=== PATIENT | female | born 1980 | race African-American/Black ===

== ENCOUNTER 2023-10-04 02:52 | Day surgery (SDC) | payer OTHER, SELFPAY ==
[2023-10-03 08:32] VITALS: BMI 27.3
--- NOTE | 2023-10-03 08:38 | PC.NURSE ---
Report to the Outpatient Waiting Room, entrance under the green pavilion located off [facility], at time 7:30 on date 10/04/23. Planned Procedure Time: 9:30. Time changes happen often and if your time is changed the preop area will call you the afternoon before. - You and your visitor will be asked to self-screen and do not enter if you have any COVID symptoms. - A mask is optional within the hospital at this time. Patients may have clear liquids (water, carbonated beverages, clear teas, apple juice) until 3 hours prior to surgery with a maximum of 20 ounces. - No food from midnight until time of surgery Take the following medications with a SIP of water the morning of surgery: NONE DO NOT STOP ANY OF YOUR OTHER PRESCRIPTION MEDICATIONS PRIOR TO SURGERY ?EXCEPT THE FOLLOWING Medications to discontinue per physician: VITAMINS Date to take last dose: NO MORE UNTIL AFTER SURGERY Please no make-up, nail slovenian, hairspray, perfume, deodorant, or body powder the day of surgery. No jewelry (including any body piercings) or valuables the day of surgery, leave them at home. Please take a shower or bath the night before, or the morning of, surgery with an antibacterial soap. Wear comfortable, loose fitting clothing. - Jewelry must be removed prior to entering the operating room. Rings and piercings that are not removed may be cut off. - The hospital will not accept responsibility for valuables. - Please leave all valuables, including medications, at home the day of surgery. If you are going home after surgery, a licensed petroleum transport driver must drive you home. - NO public transportation without another adult if you receive anesthesia. - We recommend that an adult stay with you for 24 hours following discharge. - We also recommend that you do not drive, make important decision, drink alcoholic beverages, or take any drugs that were not prescribed by your health care provider for at least 24 hours after your discharge time. Follow any additional instructions given to you from your surgeon. If you or anyone in your household have experienced Covid symptoms in the past week, please notify your surgeon or the nurse liaison at the phone number below for possible testing. Telephone instructions given to PT - BALDOMERO CHAVARRIA and asked if any additional questions and then verbalized understanding. Patient advised to call surgeon office or pre surgery nurse liaison [phone] if any additional questions.
[2023-10-04] VITALS (9 sets, daily range): BP systolic 135–156; BP diastolic 77–109; PULSE 73–97; RESP 14–30; TEMP 36.7–36.8; O2SAT 100
--- NOTE | ~2023-10-04 | XR_ITS ---
Supine and upright views of the abdomen Clinical history: Lithotripsy Findings: Bowel gas pattern is nonspecific. No evidence for obstruction or free air. There is an 11 m m presumed stone, probably in the region of the left renal pelvis or proximal left ureter. Osseous st ructures are intact. Impression: Presumed 11 mm stone, likely in the region of the left renal pelvis or proximal left ureter. Reviewed, dictated and finalized at location . [facility] Impression: Presumed 11 mm stone, likely in the region of the left renal pelvis or proximal left ureter.
--- NOTE | 2023-10-04 06:25 | WPDHPUPDATE1 ---
History and Physical Update Update Date/Time: 10/04/23 06:25 History and Physical has been reviewed, including an updated exam of the patient. There are NO changes in the patient's condition. Risks, benefits, and alternatives have been discussed and questions answered. Patient agrees to proceed with procedure.
--- NOTE | 2023-10-04 06:26 | WPDHPUPDATE1 ---
History and Physical Update Update Date/Time: 10/04/23 06:26 History and Physical has been reviewed, including an updated exam of the patient. There are NO changes in the patient's condition. Risks, benefits, and alternatives have been discussed and questions answered. Patient agrees to proceed with procedure.
--- NOTE | 2023-10-04 07:57 | ECG_ITS ---
Measurements Intervals Bradley Rate: 72 P: 62 VT: 168 QRS: 51 QRSD: 82 T: 44 QT: 389 QTc: 429 Interpretive Statements SINUS RHYTHM NORMAL ECG NO PREVIOUS ECG AVAILABLE FOR COMPARISON Electronically Signed On 10-04-2023 14:09:21 STUDENT ACCOUNTS COORDINATOR by Nigel Pierre M.D.
[2023-10-04 08:33] LABS: Appearance Urine Clear (Clear); Bilirubin Urine Negative (Negative); Blood Urine Negative (Negative); Color Urine Yellow (Yellow); Glucose Urine UA Negative (Negative); Ketones Urine Negative (Negative); Leukocyte Esterase Ur Negative LEU/UL (Negative); Nitrate Urine Negative (Negative); Protein Urine Negative (Negative); Specific Grav Ur 1.013 (1.001-1.035); Urobilinogen Urine 0.2 mg/dL (<2.0); pH Urine 6.5 (5.0-9.0)
[2023-10-04 08:41] LABS: Add Urine Microscopic? NO
[2023-10-04] MEDS: LACTATED RINGERS 1,000 ML 30 ML IV CONT (08:45)
--- NOTE | 2023-10-04 09:03 | WPDANESEPPF ---
Anes - Initial Pre Proc Eval Procedure: Operation Date: 10/04/23 09:30 Proposed Procedures p Left Ureteral Extracorporeal Shock Wave Lithotripsy - Selwyn Escobar MD Date/Time: 10/04/23 09:03 Surgeon: Selwyn Escobar MD Pre Op Diagnosis: Lt Ureteral Kidney Stone Patient Data Age: 43 Gender: F Height: 1.73 m Weight: 58.2 kg Allergies Allergy/AdvReac Type Severity Reaction Status Date / Time amlodipine Allergy Rash Verified 10/04/23 08:46 naproxen Allergy Swelling Verified 10/03/23 08:31 Home Medications Medication Instructions Recorded Confirmed Type ferrous sulfate 325 mg (65 mg 325 mg PO DAILY 10/03/23 10/04/23 History iron) tablet (Iron (ferrous sulfate)) losartan 100 1 tablet PO DAILY 10/03/23 10/04/23 History mg-hydrochlorothiazide 12.5 mg tablet semaglutide 1 mg/dose (4 mg/3 mL) 1 mg subcut WEEKLY 10/03/23 10/04/23 History subcutaneous pen injector (Ozempic) Laboratory Tests 10/04/23 10/04/23 08:23 08:43 Hgb Pending Hct Pending PT Pending INR Pending APTT Pending Sodium Pending Potassium Pending Chloride Pending Carbon Dioxide Pending Anion Gap Pending BUN Pending Creatinine Pending Estim Creat Clear Calc Pending Estimated GFR Pending Glucose Pending Calcium Pending Urine Color Yellow (Yellow) Urine Appearance Clear (Clear) Urine pH 6.5 (5.0-9.0) Ur Specific [place] 1.013 (1.001-1.035) Urine Protein Negative mg/dL (Negative) Urine Glucose (UA) Negative mg/dL (Negative) Urine Ketones Negative mg/dL (Negative) Ur Blood (Man) Negative (Negative) Urine Nitrate Negative (Negative) Urine Bilirubin Negative (Negative) Urine Urobilinogen 0.2 mg/dL (<2.0) Leukocyte Esterase Rfl Negative MARQUISE/UL (Negative) Patient hx anesthesia problems: post op nausea/vomiting Family hx anesthesia problems: none Results Review: All pre-operative results and documents have been reviewed as part of the pre-operative evaluation. [facility] Social History Social History Smoking status: Never smoker Alcohol intake: current Alcohol use details: RARE Substance use: current Substance use type: marijuana Living arrangements: with family Spiritual care concerns: No Anes - Eval Final PreProcedure Day of Procedure 10/04/23 09:03 Patient weight: normal Heart: regular rate and rhythm Lungs: clear to auscultation Airway: Mallampati scale class II Neurological: alert and oriented Last oral intake: >/= 8 hours ASA classification: II Emergent: no Anesthetic plan: proceed Anesthesia type and monitoring: general LMA and standard monitoring Results Review: All pre-operative results and documents have been reviewed as part of the pre-operative evaluation. Informed Consent: The patient's anesthetic plan and its attendant risks and benefits were discussed with the patient/family/POA. Questions were solicited and answers provided to the satisfaction of the patient/family/POA.
[2023-10-04 09:05] LABS: Anion Gap 5 mmol/L (8-16); Blood Urea Nitrogen 11 mg/dL (7-17); Calcium 9.3 mg/dL (8.4-10.2); Carbon Dioxide 29 mmol/L (22-30); Chloride 104 mmol/L (98-107); Estimated CRCL calculation 73 ml/min; Estimated Glomerular Filt Rate > 60; Glucose 89 mg/dL (65-110); Potassium 3.5 mmol/L (3.4-5.0); Sodium 138 mmol/L (137-145)
[2023-10-04 09:08] LABS: Prothrombin Time 13.1 Seconds (11.1-14.7)
[2023-10-04 09:09] LABS: Partial Thromboplastin Time 30.6 SECONDS (22.3-36.8)
[2023-10-04 09:13] LABS: Hematocrit 37.2 % (37.0-47.0); Hemoglobin 12.2 g/dL (12.0-15.0)
[2023-10-04] MEDS: ceFAZolin 2 GM/D5W 50 ML 2 GM/50 ML BAG IVPB (09:30)
--- NOTE | 2023-10-04 09:59 | W.PM.PROC2 ---
Procedure Note - Detailed Date of Procedure 10/04/23 Pre-op Diagnosis Left kidney stone Post-op Diagnosis Same Procedure Performed Left ESWL Surgeon Selwyn Escobar MD Anesthesia General Description of Procedure The patient was brought to the operative suite where she was placed in the supine position on the Dornier lithotripsy table. The focal point of the lithotripter was placed at a 7mm left lower pole calculus. A total of 2500 shocks were delivered at a power setting of 4. There appeared to be good fragmentation of the stone. The patient tolerated the procedure well and was taken to the recovery room in good condition. Drains No Pathology None sent Complications No immediate complications Condition Stable
[2023-10-04] MEDS: KETOROLAC 30 MG/ML VIAL (*BKC) IV PUSH (10:06)
[2023-10-04] MEDS: SCOPOLAMINE 1.5 MG PATCH TRANSDERM (10:29)
[2023-10-04] MEDS: hydrALAZINE HCL 20 MG/ML VIAL 5 MG IV PUSH ×2 (10:38→10:47)
--- NOTE | 2023-10-04 10:43 | SUR.PHASEI ---
1041: Simple mask removed.
[2023-10-04] MEDS: oxyCODONE HCL (*CRX) 5 MG TAB IR PO (11:38)
== END 2023-10-04 12:20 | disposition home or self-care (01) ==
PROVIDERS: Anesthesiology; Visit Provider Urology
PROC: (CPT 50590; principal; 2023-10-04 09:30)
DX: N20.0 Calculus of kidney (principal); Z79.85 Long-term (current) use of injectable non-insulin antidiabetic drugs; Z87.891 Personal history of nicotine dependence
CPT/HCPCS: 50590; 36415; 74018; 80048; 81003; 85014; 85018; 85610; 85730; 93005; A9270; J0360; J0690; J1100; J1885; J2250; J2405; J2704; J3010; J7120